=== PATIENT | female | born 1975 | race Caucasian/White ===

== ENCOUNTER 2017-03-04 06:08 | Observation (INO) ==
[2017-03-04] MEDS ORDERED: SODIUM CHLORIDE 1,000 ML IV STA ×2 (06:30)
[2017-03-04] MEDS ORDERED: PHENERGAN 25 MG/ML VIAL 25 MG in SODIUM CHLORIDE 50 ML IV STA ×2 (06:31→09:10)
--- NOTE | 2017-03-04 06:37 | ED.PDOC ---
General Stated Complaint: im vomting and having diarrhea Time Seen by Physician: 06:35 Mode of Arrival: Walk-In Information Source: Patient Exam Limitations: No limitations Nursing and Triage Documentation Reviewed and Agree: Yes <SARAHESTERCHELI - Last Filed: 03/04/17 06:37> Stated Complaint: Woke up with nausea/vomiting. Diarrhea x 2. Chills. Perspiring. Appetite down. Unable to keep liquids down. [ End ]SINCE 299 97.4 76 20 98% 174/81 Time Seen by Physician: 07:18 <TEAGAN MARTINEZ JR - Last Filed: 03/04/17 11:23> ED Provider: Dr. TEAGAN MARTINEZ JR Chief Complaint: Nausea/Vomiting Primary Care Provider: GLORIA PARIKH GI Complaint Exam - Vomiting/Diarrhea Complaint/Exam Onset/Duration: several hours Symptoms Are: Still present Episodes of Vomiting over last 24 Hours: 8 Episodes of Diarrhea Over Last 24 Hours: 6 Initial Severity: Mild Current Severity: Moderate Character of Vomiting: Reports: Non-bilious Character of Diarrhea: Reports: Watery Aggravating: Reports: Food Alleviating: Reports: None Associated Signs and Symptoms: Reports: Cramping Recent Positive Test: No Use of Oral Contraceptives: No Use of Depoprovera: No Compliant With Contraceptive Use: No Non-GI Risk Factors: Reports: None Surgical Obstruction Risk Factors: Reports: Colicky abdominal pain Abdominal Findings: Present: None Kussmaul Respirations Present: No Differential Diagnoses: Dehydration, Viral Gastroenteritis, Bacterial Gastroenteritis <SARAHESTERCHELI Filed: 03/04/17 06:37> Review of Systems - Review Of Systems Constitutional: Reports: No symptoms Eyes: Reports: No symptoms Ears, Nose, Mouth, Throat: Reports: No symptoms Respiratory: Reports: No symptoms Cardiac: Reports: No symptoms GI: Reports: Abdominal pain, Diarrhea, Nausea, Vomiting : Reports: No symptoms Musculoskeletal: Reports: No symptoms Skin: Reports: No symptoms Neurological: Reports: No symptoms Endocrine: Reports: No symptoms Hematologic/Lymphatic: Reports: No symptoms All Other Systems: Reviewed and Negative <SARAH-ERCHELI Last Filed: 03/04/17 06:37> Past Medical History - Past Medical History Endocrine: Reports: Unknown Cardiovascular: Reports: Hypertension Hematological: Reports: Unknown Gastrointestinal: Reports: Unknown Genitourinary: Reports: Unknown Neuro/Psych: Reports: Unknown Musculoskeletal: Reports: Unknown Cancer: Reports: Unknown Last Menstrual Period: now - Surgical History General Surgical History: Reports: Unknown - Family History Family History: Reports: Unknown - Social History Smoking Status: Current every day smoker Hx Substance Use: No Alcohol Screening: Occasionally Lives: With family - Immunizations Tetanus Shot up to Date: Yes <SARAHESTERCHELI - Last Filed: 03/04/17 06:37> - Past Medical History Cardiovascular: Reports: Hypertension Respiratory: Reports: Unknown Neuro/Psych: Reports: Anxiety, Depression Other Pertinent Past Medical History: 2009 similar episode per patietn <TEAGAN MARTINEZ JR - Last Filed: 03/04/17 11:23> Physical Exam - Physical Exam Appearance: Well-appearing, No pain distress, Well-nourished Pain Distress: Mild Eyes: GIANA, EOMI, Conjunctiva clear ENT: Ears normal, Nose normal, Oropharynx normal Neck: Supple Respiratory: Airway patent, Breath sounds clear, Breath sounds equal, Respirations nonlabored Cardiovascular: RRR, Pulses normal, No rub, No murmur GI/: Soft, Nontender, No masses, Bowel sounds normal, No Organomegaly Musculoskeletal: Normal strength, ROM intact, No edema, No calf tenderness Skin: Warm, Dry, Normal color Neurological: Sensation intact, Motor intact, Reflexes intact, Cranial nerves intact, Alert, Oriented Psychiatric: Affect appropriate <SARAHESTERCHELI - Last Filed: 03/04/17 06:37> Interpretation - Radiology Interpretation Radiology Interpretation By: Radiologist Radiology Results: Positive Exam Interpreted: CT Scan (gastroenteritis) Radiology Interpretation By: Radiologist Radiology Results: Negative Exam Interpreted: CXR <TEAGAN MARTINEZ JR - Last Filed: 03/04/17 11:23> Physician Notification - Case Discussed Physician Notified: dr martinez Time of Notification: 07:00 <JEFFRYCHELI - Last Filed: 03/04/17 06:37> Critical Care Note - Critical Care Note Total Time (mins): 5 <TEAGAN MARTINEZ JR - Last Filed: 03/04/17 11:23> Course - Course Hematology/Chemistry: 03/04/17 06:35 03/04/17 06:35 <TEAGAN MARTINEZ JR - Last Filed: 03/04/17 11:23> - Course Orders, Labs, Meds: Lab Review 0403/04/17 03/04/17 06:30 06:35 09:56 WBC 15.63 H RBC 4.91 Hgb 14.0 Hct 41.7 MCV 84.9 MCH 28.5 MCHC 33.6 RDW Coeff of Jesus 17.6 H Plt Count 244 Immature Gran % (Auto) 0.3 Neut % (Auto) 84.5 Lymph % (Auto) 8.4 L [place] % (Auto) 5.5 Eos % (Auto) 1.0 Baso % (Auto) 0.3 Immature Gran # (Auto) 0.1 Neut # 13.2 H Lymph # 1.3 [place] # 0.9 Eos # 0.2 Baso # 0.0 Sodium 139 Potassium 3.8 Chloride 107 Carbon Dioxide 21 Anion Gap 14.8 BUN 11 Creatinine 0.93 Estimated GFR (MDRD) 66.00 BUN/Creatinine Ratio 11.82 Glucose 164 H Calcium 9.1 Total Bilirubin 0.29 AST 11 L ALT 8 L Alkaline Phosphatase 61 Total Protein 7.4 Albumin 4.1 Globulin 3.3 Albumin/Globulin Ratio 1.24 Amylase 48 Lipase 16 Serum , Qual Negative Urine Color Yellow Urine Clarity Slightly Urine pH 7.0 Ur Specific [place] 1.020 Urine Protein Negative Urine Glucose (UA) Negative Urine Ketones 1+ Urine Blood 3+ Urine Nitrite Negative Urine Bilirubin Negative Urine Urobilinogen 0.2 Ur Leukocyte Esterase Negative Urine Microscopic RBC 10-20 Urine Microscopic WBC 0-2 Ur Squamous Epith Cells 10-20 Urine Bacteria 1+ Influenza A (Rapid) Negative Influenza B (Rapid) Negative Orders Category Date Time Status PLACE PATIENT OBSERVATION .[facility] (NON-MONITORED ADMISSION 03/04/17 11: 06 Ordered BED) ACTIVITY .Early Mobilization for VTE Prevention CARE 03/04/17 11:06 Ordered C-DIFF MONITORING (NURSING) BID CARE 03/04/17 06:30 Active GIVE HS SNACK 2100 CARE 03/04/17 11:11 Ordered INTAKE & OUTPUT Q8HR CARE 03/04/17 11:07 Ordered VITAL SIGNS Q4HR CARE 03/04/17 11:06 Ordered CLEAR LIQUID DIET DIETARY 03/04/17 Lunch Ordered HS SNACK DIETARY 03/04/17 Dinner Ordered IV [ED IV/MEDIPORT/POWERPORT] .ONCE EMERGENCY 03/04/17 06:30 Active Orthostatic [ED ORTHOSTATIC VITAL SIGNS] .ONCE EMERGENCY 03/04/17 07:06 Active AMYLASE Stat LAB 03/04/17 06:35 Completed CBC W/ AUTO DIFF DAILY@0600 LAB 03/05/17 06:00 Ordered CBC W/ AUTO DIFF DAILY@0600 LAB 03/06/17 06:00 Ordered CBC W/ AUTO DIFF DAILY@0600 LAB 03/07/17 06:00 Ordered CBC W/ AUTO DIFF DAILY@0600 LAB 03/08/17 06:00 Ordered CBC W/ AUTO DIFF DAILY@0600 LAB 03/09/17 06:00 Ordered CBC W/ AUTO DIFF DAILY@0600 LAB 03/10/17 06:00 Ordered CBC W/ AUTO DIFF DAILY@0600 LAB 03/11/17 06:00 Ordered CBC W/ AUTO DIFF DAILY@0600 LAB 03/12/17 06:00 Ordered CBC W/ AUTO DIFF DAILY@0600 LAB 03/13/17 06:00 Ordered CBC W/ AUTO DIFF DAILY@0600 LAB 03/14/17 06:00 Ordered CBC W/ AUTO DIFF DAILY@0600 LAB 03/15/17 06:00 Ordered CBC W/ AUTO DIFF DAILY@0600 LAB 03/16/17 06:00 Ordered CBC W/ AUTO DIFF DAILY@0600 LAB 03/17/17 06:00 Ordered CBC W/ AUTO DIFF DAILY@0600 LAB 03/18/17 06:00 Ordered CBC W/ AUTO DIFF DAILY@0600 LAB 03/19/17 06:00 Ordered CBC W/ AUTO DIFF DAILY@0600 LAB 03/20/17 06:00 Ordered CBC W/ AUTO DIFF DAILY@0600 LAB 03/21/17 06:00 Ordered CBC W/ AUTO DIFF DAILY@0600 LAB 03/22/17 06:00 Ordered CBC W/ AUTO DIFF DAILY@0600 LAB 03/23/17 06:00 Ordered CBC W/ AUTO DIFF DAILY@0600 LAB 03/24/17 06:00 Ordered CBC W/ AUTO DIFF Stat LAB 03/04/17 06:35 Completed COMPREHENSIVE METABOLIC PANEL DAILY@0600 LAB 03/05/17 06:00 Ordered COMPREHENSIVE METABOLIC PANEL DAILY@0600 LAB 03/06/17 06:00 Ordered COMPREHENSIVE METABOLIC PANEL DAILY@0600 LAB 03/07/17 06:00 Ordered COMPREHENSIVE METABOLIC PANEL DAILY@0600 LAB 03/08/17 06:00 Ordered COMPREHENSIVE METABOLIC PANEL DAILY@0600 LAB 03/09/17 06:00 Ordered COMPREHENSIVE METABOLIC PANEL DAILY@0600 LAB 03/10/17 06:00 Ordered COMPREHENSIVE METABOLIC PANEL DAILY@0600 LAB 03/11/17 06:00 Ordered COMPREHENSIVE METABOLIC PANEL DAILY@0600 LAB 03/12/17 06:00 Ordered COMPREHENSIVE METABOLIC PANEL DAILY@0600 LAB 03/13/17 06:00 Ordered COMPREHENSIVE METABOLIC PANEL DAILY@0600 LAB 03/14/17 06:00 Ordered COMPREHENSIVE METABOLIC PANEL DAILY@0600 LAB 03/15/17 06:00 Ordered COMPREHENSIVE METABOLIC PANEL DAILY@0600 LAB 03/16/17 06:00 Ordered COMPREHENSIVE METABOLIC PANEL DAILY@0600 LAB 03/17/17 06:00 Ordered COMPREHENSIVE METABOLIC PANEL DAILY@0600 LAB 03/18/17 06:00 Ordered COMPREHENSIVE METABOLIC PANEL DAILY@0600 LAB 03/19/17 06:00 Ordered COMPREHENSIVE METABOLIC PANEL DAILY@0600 LAB 03/20/17 06:00 Ordered COMPREHENSIVE METABOLIC PANEL DAILY@0600 LAB 03/21/17 06:00 Ordered COMPREHENSIVE METABOLIC PANEL DAILY@0600 LAB 03/22/17 06:00 Ordered COMPREHENSIVE METABOLIC PANEL DAILY@0600 LAB 03/23/17 06:00 Ordered COMPREHENSIVE METABOLIC PANEL DAILY@0600 LAB 03/24/17 06:00 Ordered COMPREHENSIVE METABOLIC PANEL Stat LAB 03/04/17 06:35 Completed LIPASE Stat LAB 03/04/17 06:35 Completed MOLECULAR GROUP A STREP Stat LAB 03/04/17 06:30 Results RAPID FLU A/B Stat LAB 03/04/17 06:30 Completed SERUM Stat LAB 03/04/17 06:35 Completed STOOL CULTURE Stat LAB 03/04/17 Ordered STREP SCREEN Stat LAB 03/04/17 06:30 Results UA [URINALYSIS C & S IF INDICATED] Routine LAB 03/05/17 06:00 Uncollected URINALYSIS C & S IF INDICATED Stat LAB 03/04/17 09:56 Completed URINE CULTURE Routine LAB 03/04/17 10:15 Received cdiff [C. DIFFICILE] Routine LAB 03/04/17 06:30 Uncollected 0.9 % Sodium Chloride [Saline Flush] MEDS 03/04/17 06:30 Active 1 syr IVF PRN PRN Diphenoxylate HCl/Atropine [Lomotil] MEDS 03/04/17 13:00 Ordered 5 ml PO QID Enalaprilat Dihydrate [Vasotec IV] MEDS 03/04/17 09:11 Discontinued 1.25 mg IVP ONCE STA Prochlorperazine Edisylate [Compazine] MEDS 03/04/17 11:14 Ordered 10 mg IVP Q4H PRN Promethazine HCl [Phenergan 25 mg/ml Vial] MEDS 03/04/17 06:46 Discontinued 25 mg .ROUTE .STK-MED ONE Promethazine HCl [Phenergan 25 mg/ml Vial] MEDS 03/04/17 09:13 Discontinued 25 mg .ROUTE .STK-MED ONE Promethazine HCl [Phenergan 25 mg/ml Vial] 25 mg MEDS 03/04/17 06:31 Discontinued 0.9 % Sodium Chloride [Sodium Chloride] 50 ml IV ONCE Promethazine HCl [Phenergan 25 mg/ml Vial] 25 mg MEDS 03/04/17 09:10 Discontinued 0.9 % Sodium Chloride [Sodium Chloride] 50 ml IV ONCE Sodium Chloride 0.9% [Sodium Chloride] 1,000 ml MEDS 03/04/17 11:30 Ordered IV 75 mls/hr Sodium Chloride 0.9% [Sodium Chloride] 1,000 ml MEDS 03/04/17 06:30 Discontinued IV BOLUS Sodium Chloride 0.9% [Sodium Chloride] 1,000 ml MEDS 03/04/17 06:30 Discontinued IV BOLUS RESUSCITATION STATUS Routine OTHERS 03/04/17 11:[address] ABDOMEN/PELVIS WO CONTRAST Stat RADS 03/04/17 06:31 Completed CXR [CHEST, 2 VIEWS PA & LAT] Stat RADS 03/04/17 10:53 Ordered Medications Generic Name Dose Route Start Last Admin Trade Name Freq PRN Reason Stop Dose Admin Diphenoxylate HCl/Atropine 5 ml 03/04/17 13:00 Lomotil PO QID HARLAN Sodium Chloride 1,000 mls @ 75 mls/hr 03/04/17 11:30 Sodium Chloride IV .[id number] HARLAN Prochlorperazine Edisylate 10 mg 03/04/17 11:14 Compazine IVP Q4H PRN Nausea / Vomiting Sodium Chloride 1 syr 03/04/17 06:30 03/04/17 06:56 Saline Flush IVF 1 syr PRN PRN Administration To flush IV Discontinued Medications Generic Name Dose Route Start Last Admin Trade Name Freq PRN Reason Stop Dose Admin Enalaprilat 1.25 mg 03/04/17 09:11 03/04/17 10:08 Vasotec Iv IVP 03/04/17 09:12 1.25 mg ONCE STA Administration Promethazine HCl 25 mg/ Sodium 51 mls @ 75 mls/hr 03/04/17 06:31 03/04/17 06: 56 Chloride IV 03/04/17 07:11 75 mls/hr ONCE STA Administration Sodium Chloride 1,000 mls @ 1,000 mls/hr 03/04/17 06:30 03/04/17 06:56 Sodium Chloride IV 03/04/17 07:29 1,000 mls/hr BOLUS STA Administration Sodium Chloride 1,000 mls @ 1,000 mls/hr 03/04/17 06:30 03/04/17 08:04 Sodium Chloride IV 03/04/17 07:29 Not Given BOLUS STA Promethazine HCl 25 mg/ Sodium 51 mls @ 75 mls/hr 03/04/17 09:10 03/04/17 09: 19 Chloride IV 03/04/17 09:50 75 mls/hr ONCE STA Administration Vital Signs: Temp Pulse Resp BP Pulse Ox 03/04/17 08:50 92 H 169/87 H 03/04/17 07:40 98.3 F 03/04/17 06:14 97.4 F L 76 20 174/81 H 98 Departure <CHELI TERAN - Last Filed: 03/04/17 06:37> - Departure Time of Disposition: 08:25 Pt referred to PMD for follow-up: Yes <TEAGAN MARTINEZ JR - Last Filed: 03/04/17 11:23> - Departure Disposition: HOME SELF-CARE Discharge Problem: Gastroenteritis Instructions: Gastroenteritis (ED) Condition: Good Additional Instructions: phenergan as needed follow up with PMD discuss CT findings return if unable to keep liquids down if not voiding more than 3 times a day if fever over 101.0 Please follow-up with Dr. Parikh in 1-5 days. Prescriptions: Promethazine HCl [Phenergan Tab] 25 mg PO QID PRN #12 tablet PRN Reason: Nausea / Vomiting Allergies/Adverse Reactions: Allergies ondansetron [From Zofran (as hydrochloride)] Adverse Reaction (Verified 06:30) Vomiting sulfamethoxazole [From Bactrim] Adverse Reaction (Verified 03/04/17 06:30) trimethoprim [From Bactrim] Adverse Reaction (Verified 03/04/17 06:30) Home Medications: Ambulatory Orders Citalopram Hydrobromide [Celexa] 20 mg PO DAILY 03/04/17 Ferrous Sulfate [Iron] 325 mg PO DAILY 03/04/17 Promethazine HCl [Phenergan Tab] 25 mg PO QID PRN #12 tablet 03/04/17 Quinapril HCl 40 mg PO DAILY 03/04/17
[2017-03-04 06:43] LABS: BASOPHILS % (AUTO) 0.3 % (0.0-3.0); EOSINOPHILS # (AUTO) 0.2 K/ul (0.0-0.7); HEMATOCRIT 41.7 % (37.0-47.0); IMMATURE GRANULOCYTE % (AUTO) 0.3 % (0.0-5.0); LYMPHOCYTES # (AUTO) 1.3 K/uL (0.60-3.4); LYMPHOCYTES % (AUTO) 8.4 (10.0-50.0); MEAN CORPUSCULAR HEMOGLOBIN 28.5 pg (27.0-31.0); MEAN CORPUSCULAR HGB CONC 33.6 (31.8-35.4); MEAN CORPUSCULAR VOLUME 84.9 fl (81.0-99.0); MONOCYTES # (AUTO) 0.9 K/uL (0.4-2.0); MONOCYTES % (AUTO) 5.5 (0-10); NEUTROPHILS # (AUTO) 13.2 K/ul (2.0-6.9); NEUTROPHILS % (AUTO) 84.5; PLATELET COUNT 244 10^3/uL (140-440); RED BLOOD COUNT 4.91 10^6/ul (4.20-5.40); WHITE BLOOD COUNT 15.63 K/ul (4.6-10.2)
[2017-03-04] MEDS ORDERED: PHENERGAN 25 MG/ML VIAL ONE ×2 (06:46→09:13)
[2017-03-04 06:57] LABS: FLU INTERNAL QC INTERNAL QC VALID; RAPID FLU A NEGATIVE (NEGATIVE); RAPID FLU B NEGATIVE (NEGATIVE)
[2017-03-04 06:57] LABS: SERUM PREGNANCY INTERNAL QC INTERNAL QC VALID
[2017-03-04 07:02] LABS: ALBUMIN 4.1 g/dL (3.4-5.0); ALBUMIN/GLOBULIN RATIO 1.24; ANION GAP 14.8; BILIRUBIN,TOTAL 0.29 mg/dL (0.00-1.20); BUN/CREATININE RATIO 11.82; CALCIUM 9.1 mg/dL (8.2-10.2); CREATININE 0.93 mg/dL (0.60-1.30); POTASSIUM 3.8 mmol/L (3.5-5.10); TOTAL PROTEIN 7.4 g/dL (6.4-8.2)
--- NOTE | 2017-03-04 08:31 | CT ---
EXAM: CT abdomen pelvis without contrast HISTORY: Vomiting COMPARISON: 12/21/2009 TECHNIQUE: CT abdomen pelvis performed without intravenous contrast. Coronal and sagittal reformat fabricio images obtained. FINDINGS: Lung bases clear. No free air. No acute abnormalities of the bones. Evaluation limited without contrast. Heart normal in size. Sub centimeter hypodensity in the liver, too small to adam acterize. Gallbladder unremarkable. Pancreas unremarkable. Spleen unremarkable. Adrenals unremar kable. Kidneys unremarkable. Aorta normal in caliber. Mild atherosclerosis No lymphadenopathy or ascites. Bladder unremarkable. Sub centimeter calcification in the uterus likely small fibroid. Sm all hiatal hernia. No dilated loops small bowel. There are fluid-filled loops small bowel with mil d areas of wall thickening and prominence vasa recta, findings suggesting enteritis. Appendix appe ars normal. There is fluid in the colon. Possible mild wall thickening of the descending colon to t he rectum. Increased submucosal fat deposition in portions of the colon. IMPRESSION: 1. Findings of enteritis. Possible mild associated colitis. Fluid in the colon likely relates to d iarrhea. 2. Increased submucosal fat deposition in portions of the colon, suggesting sequela of remote infec tion or inflammation, such as inflammatory bowel disease. 3. Small hiatal hernia. 4. Small fibroid.
[2017-03-04] MEDS ORDERED: VASOTEC IV IVP STA ×2 (09:11→22:18)
[2017-03-04 10:08] LABS: BILIRUBIN,URINE Negative (NEGATIVE); KETONES,URINE 1+ (NEGATIVE); LEUKOCYTE ESTERASE ,URINE Negative (NEGATIVE); NITRITE,URINE Negative (NEGATIVE); PROTEIN,URINE Negative (NEGATIVE); URINE, BLOOD 3+ (NEGATIVE)
[2017-03-04 10:13] LABS: ADD URINE MICROSCOPIC YES
[2017-03-04 10:14] LABS: BACTERIA,URINE 1+ (NOT PRESENT)
--- NOTE | 2017-03-04 11:14 | DI ---
EXAM: PA and lateral views of the chest HISTORY: Cough COMPARISON: Chest x-ray 12/21/2009 FINDINGS: The cardiomediastinal silhouette is normal. There is no pneumothorax or pleural effusion . There is no consolidation, nodule or mass. The osseous structures are unchanged with mild degene rative disease. IMPRESSION: No acute cardiopulmonary process
[2017-03-04] MEDS: SODIUM CHLORIDE 1,000 ML IV SCH (12:45)
[2017-03-04 12:50] VITALS: BMI 23.1
[2017-03-04] MEDS ORDERED: LOMOTIL PO SCH (13:00)
[2017-03-04] MEDS: LOMOTIL PO SCH ×3 (14:09→20:47)
[2017-03-04] MEDS: COMPAZINE IVP PRN ×2 (15:43→20:07)
[2017-03-05] MEDS: SODIUM CHLORIDE 1,000 ML IV SCH (01:35)
[2017-03-05 04:50] LABS: BASOPHILS % (AUTO) 0.3 % (0.0-3.0); HEMATOCRIT 36.1 % (37.0-47.0); HEMOGLOBIN 11.9 g/dl (12.0-16.0); IMMATURE GRANULOCYTE % (AUTO) 0.5 % (0.0-5.0); LYMPHOCYTES # (AUTO) 1.6 K/uL (0.60-3.4); LYMPHOCYTES % (AUTO) 14.8 (10.0-50.0); MEAN CORPUSCULAR HEMOGLOBIN 27.7 pg (27.0-31.0); MEAN CORPUSCULAR VOLUME 84.1 fl (81.0-99.0); MONOCYTES # (AUTO) 0.6 K/uL (0.4-2.0); MONOCYTES % (AUTO) 5.5 (0-10); NEUTROPHILS # (AUTO) 8.4 K/ul (2.0-6.9); NEUTROPHILS % (AUTO) 78.9; PLATELET COUNT 235 10^3/uL (140-440); RED BLOOD COUNT 4.29 10^6/ul (4.20-5.40); WHITE BLOOD COUNT 10.57 K/ul (4.6-10.2)
[2017-03-05 05:12] LABS: ALBUMIN 3.5 g/dL (3.4-5.0); ALBUMIN/GLOBULIN RATIO 1.17; ANION GAP 11.3; BILIRUBIN,TOTAL 0.49 mg/dL (0.00-1.20); BUN/CREATININE RATIO 8.75; CREATININE 0.8 mg/dL (0.60-1.30); POTASSIUM 3.3 mmol/L (3.5-5.10); TOTAL PROTEIN 6.5 g/dL (6.4-8.2)
[2017-03-05 05:50] LABS: BILIRUBIN,URINE 1+ (NEGATIVE); KETONES,URINE 3+ (NEGATIVE); LEUKOCYTE ESTERASE ,URINE Negative (NEGATIVE); NITRITE,URINE Negative (NEGATIVE); PROTEIN,URINE Trace (NEGATIVE); URINE, BLOOD 1+ (NEGATIVE)
[2017-03-05 05:55] LABS: ADD URINE MICROSCOPIC YES
[2017-03-05 05:56] LABS: BACTERIA,URINE TRACE (NOT PRESENT)
[2017-03-05] MEDS ORDERED: MICRO-K CAP PO STA (08:32)
[2017-03-05] MEDS ORDERED: CELEXA PO SCH (09:00)
[2017-03-05] MEDS ORDERED: FERROUS SULFATE PO SCH (09:00)
[2017-03-05] MEDS ORDERED: POTASSIUM CHLORIDE 40 MEQ VIAL-ADDITIVE ONLY 30 MEQ in SODIUM CHLORIDE 1,000 ML IV SCH (09:00)
[2017-03-05] MEDS ORDERED: POTASSIUM CHLORIDE 10 MEQ VIAL-ADDITIVE ONLY 10 MEQ in SODIUM CHLORIDE 0.9%-KCL 20 MEQ ... IV SCH (09:00)
[2017-03-05] MEDS ORDERED: NON-FORMULARY MEDICATION (Ferrous Sulfate [Iron] 325 MG) PO SCH ×22 (09:00)
[2017-03-05] MEDS ORDERED: ACCUPRIL PO SCH (09:00)
[2017-03-05] MEDS: LOMOTIL PO SCH ×2 (09:10→14:03)
--- NOTE | 2017-03-05 09:54 | PCM.PROG ---
Attending Provider: ATTENDING PROVIDER: Dr. GLORIA HOSKINS DATE OF SERVICE: 03/05/17 SUBJECTIVE: This 41 year old WHITE/ F was hospitalized 03/04/17. The patient is hospitalized with acute gastroenteritis. Her condition has improved remarkably. She vomited 2 times last night after 5 a.m. She is feeling better without any nausea or vomiting. Appetite has improved. The patient wants to go home. Her amylase and lipase are negative. WBC count is back to normal with borderline hypokalemia noted. The patient's mother is in the room and was yesterday as well. REVIEW OF SYSTEMS: CONSTITUTIONAL: No night sweats. No fatigue, malaise, lethargy. No fever or chills. HEENT: Eyes: No visual changes. No eye pain. No eye discharge. ENT: No runny nose. No epistaxis. No sinus pain. No odynophagia. No congestion. RESPIRATORY: No cough, no congestion. No hemoptysis. CARDIOVASCULAR: No angina symptoms. No CHF symptoms. No atypical chest pain for CAD. No palpitations. No shortness of breath. GASTROINTESTINAL: No abdominal pain. No nausea or vomiting. No diarrhea or constipation. No hematemesis. No hematochezia. GENITOURINARY: No urgency. No frequency. No dysuria. No hematuria. No obstructive symptoms. No discharge. No pain. No significant abnormal bleeding. MUSCULOSKELETAL: No musculoskeletal pain; no joint swelling. NEUROLOGICAL: Awake, alert, oriented to time, place and person. No headache. No neck pain. No syncope. No seizures. No dizziness. PSYCHIATRIC: Not anxious. No depression. No suicidal thoughts. No homicidal thoughts. SKIN: No rash. No lesions. No wounds. ENDOCRINE: No unexplained weight loss. No weight gain. HEMATOLOGIC/LYMPHATIC: No anemia. No purpura. No petechiae. No prolonged or excessive bleeding. No palpable lymph nodes. PHYSICAL EXAMINATION: GENERAL: The patient is awake, alert and oriented, lying/sitting in bed in no distress. VITAL SIGNS: Temperature 98.0 F, Pulse 84, Respiratory Rate 18, BP 136/74, Pulse Ox 98% HEENT: Head normocephalic, atraumatic. Eyes: Extraocular muscles are intact. Pupils are equal, round and reactive to light and accommodation. Ears: No lesions. Nose appeared normal. Throat: No exudate or erythema. NECK: Supple. No JVD, no carotid bruit. No lymphadenopathy or thyromegaly. LUNGS: Decreased breath sounds. Clear to auscultation. Percussion note normal. Chest symmetrical. HEART: S1, S2, no S3. No murmurs. No cyanosis or clubbing. No ascites. Pulses: Dorsalis pedis and posterior tibial pulses +1 to +2 both sides. ABDOMEN: Soft. Non-tender. Bowel sounds active. No CVA tenderness. No mass felt. EXTREMITIES: No edema. Full range of motion of all extremities, equal. NEUROLOGIC: No focal deficit. Cranial nerves II through XII are grossly intact. No headache, no double vision or headache. SKIN: Not dry. Intact. Turgor-normal. LYMPHATIC: No palpable lymph nodes/no lymphedema. MUSCULOSKELETAL: Normal joints with no swelling. Muscle tone is normal. LAB REVIEW: 03/05/17 04:30 03/05/17 04:30 03/05/17 05:30: Urine Color Yellow, Urine Clarity Clear, Urine pH 6.0, Ur Specific [place] >=1.030, Urine Protein Trace, Urine Glucose (UA) Negative, Urine Ketones 3+, Urine Blood 1+, Urine Nitrite Negative, Urine Bilirubin 1+, Urine Urobilinogen 0.2, Ur Leukocyte Esterase Negative, Urine Microscopic RBC 0- 2, Urine Microscopic WBC 0-2, Ur Squamous Epith Cells 0-2, Urine Bacteria Trace 03/05/17 04:30: WBC 10.57 H D, RBC 4.29, Hgb 11.9 L, Hct 36.1 L, MCV 84.1, MCH 27.7, MCHC 33.0, RDW Coeff of Jesus 18.1 H, Plt Count 235, Immature Gran % (Auto) 0.5, Neut % (Auto) 78.9, Lymph % (Auto) 14.8, [place] % (Auto) 5.5, Eos % (Auto) 0.0, Baso % (Auto) 0.3, Immature Gran # (Auto) 0.1, Neut # 8.4 H, Lymph # 1.6, [place] # 0.6, Eos # 0.0, Baso # 0.0, Sodium 141, Potassium 3.3 L, Chloride 111 H, Carbon Dioxide 22, Anion Gap 11.3, BUN 7, Creatinine 0.80, Estimated GFR (MDRD) 79.00, BUN/Creatinine Ratio 8.75, Glucose 95 D, Calcium 9.0, Total Bilirubin 0.49, AST 10 L, ALT 7 L, Alkaline Phosphatase 52, Total Protein 6.5, Albumin 3.5 , Globulin 3.0, Albumin/Globulin Ratio 1.17 ASSESSMENT: 1. Acute gastroenteritis seems to be resolving. PLAN: 1. Continue IV fluids 2. Soft diet; avoid milk products; will see how she tolerates with possible discharge home today 3. Restart all medications 4. Micro-K 10 mEq p.o. one dose 5. Potassium IV 75 mL/hr Plan and coordination of the patient's care discussed in the presence of Regulatory Attorney and nurse. CONDITION: Stable SCRIBED BY: JOSE MENDOZA Tracer Clerk scribed while in presence of service performed by Dr. GLORIA HOSKINS on 03/05/17 ([id number])
[2017-03-05 10:25] VITALS: BP 142/76; TEMP 98.2
[2017-03-05] MEDS ORDERED: MICRO-K CAP PO ONE (12:00)
--- NOTE | 2017-03-06 13:44 | SSS ---
DATE OF SERVICE: 03/04/17 ADMITTED/03/05/17 DISCHARGED REASON FOR ADMISSION: Observation for gastroenteritis. HISTORY OF PRESENT ILLNESS: This is a 41-year-old female patient, who was seen in the emergency room by Dr. Ferrari and admitted to observation. The patient awakened with nausea and vomiting , chills and diaphoresis. She had two episodes of emesis, unable to keep anything down, unable to take medications including antihypertensives. The patient on admission was kept NPO with IV fluids. PAST MEDICAL HISTORY: 1. Hypertension 2. Anemia 3. Anxiety/depression PERSONAL/FAMILY/SOCIAL HISTORY: The patient is single, resides at home with boyfriend. Independent with ADLs. Does not require DME, home health or homemaking services. Current smoker. No recreational drugs. REVIEW OF SYSTEMS: CONSTITUTIONAL: No fever. Positive for chills, diaphoresis, nausea and vomiting. No night sweats. No fatigue, malaise, lethargy. HEENT: Eyes: No visual changes. No eye pain. No eye discharge. ENT: No runny nose. No epistaxis. No sinus pain. No sore throat. No odynophagia. No ear pain. No congestion. RESPIRATORY: No cough, no congestion. No wheeze. No hemoptysis. CARDIOVASCULAR: No angina symptoms. No CHF symptoms. No atypical chest pain for CAD. No palpitations. No shortness of breath. GASTROINTESTINAL: Abdominal pain. No nausea or vomiting. No diarrhea or constipation. No hematemesis. No hematochezia. GENITOURINARY: No urgency. No frequency. No dysuria. No hematuria. No obstructive symptoms. No discharge. No pain. No significant abnormal bleeding. MUSCULOSKELETAL: No musculoskeletal pain. No joint swelling. NEUROLOGICAL: Awake, alert, oriented to time, place and person. No headache. No neck pain. No syncope. No seizures. No dizziness. PSYCHIATRIC: Not anxious. No depression. No suicidal thoughts. No homicidal thoughts. SKIN: No rash. No lesions. No wounds. ENDOCRINE: No unexplained weight loss. No weight gain. HEMATOLOGIC/LYMPHATIC: No anemia. No purpura. No petechiae. No prolonged or excessive bleeding. No palpable lymph nodes. PHYSICAL EXAMINATION: GENERAL: 41-year-old female. Height 5'5", weight 138 pounds. VITAL SIGNS: BP 172/98, pulse 88, respiratory rate 16, temperature 97.8. HEENT: Head normocephalic, atraumatic. Eyes: Extraocular muscles are intact. Pupils are equal, round and reactive to light and accommodation. Ears: No lesions. Nose appeared normal. Throat: No exudate or erythema. NECK: Supple. No JVP, no carotid bruit. No lymphadenopathy or thyromegaly. LUNGS: Clear to auscultation. Percussion note normal. Chest symmetrical. HEART: S1, S2, no S3. No murmurs. No cyanosis or clubbing. No ascites. Pulses: Dorsalis pedis and posterior tibial pulses +1 to +2 both sides. ABDOMEN: Soft. Nontender. Bowel sounds active. No CVA tenderness. No mass felt. EXTREMITIES: No edema. Full range of motion of all extremities, equal. NEUROLOGIC: Awake, alert, oriented times three. No focal deficit. Cranial nerves II through XII are grossly intact. No headache, no double vision or headache. SKIN: Not dry. Intact. Turgor - normal. LYMPHATIC: No palpable lymph nodes/no lymphedema. MUSCULOSKELETAL: Normal joints with no swelling. Muscle tone is normal. Old/present records reviewed Office records reviewed. ALLERGIES: ONDANSETRON, SULFAMETHOXAZOLE, TRIMETHOPRIM MEDICATIONS: 1. Quinapril 2. FeS04 3. Celexa 4. Phenergan (Rx from ER) LABS/EKG'S/X-RAY/ECHO/ABG: WBCs 15.63, HgB 14.0, platelets 244, HCT 41.7. Sodium 139, chloride 107, BUN 11 , glucose 164, K+ 3.8, c02 21, creatinine 0.43. Amylase 48, lipase 16. UA 1+ ketones, 3+ blood, 1+ bacteria. Influenza A & B negative, strep negative. PROGRESS NOTES: The patient is feeling much better today, wants to try food. The patient had 3 episodes of emesis yesterday after admission, none since. No recorded stools. Case Discussed with Attending Physician: Case Discussed with Family: Yes DIAGNOSES: 1. ACUTE GASTROENTERITIS 2. DEHYDRATION 3. HYPERTENSION 4. DEPRESSION 5. ANEMIA 6. SMOKING RECOMMENDATIONS/PLAN: 1. Home today 2. Return to office in 5 to 7 days 3. Call for appointment EDUCATION CARRIED OUT ABOUT: Gastroenteritis, hypertension, medications and followup TIME SPENT: More than 70 minutes. [facility]
--- NOTE | 2017-03-06 15:01 | DS ---
DATE OF SERVICE: 03/05/17 OBSERVATION FINAL DIAGNOSIS: 1. Acute gastroenteritis 2. Hypertension 3. Depression DISCHARGE INSTRUCTIONS: Discharge home. Return to see Dr. Parikh in 5-7 days. Resume home medications. MEDICATIONS AT DISCHARGE: Celexa Ferrous sulfate Quinapril Promethazine NEW PRESCRIPTIONS: No new medications DIET INSTRUCTIONS: Soft No Dairy Products May advance as tolerated ACTIVITY: Get plenty of rest at home. Gradually increase your activity level according to toleration. SMOKING: Current smoker DISEASE SPECIFIC EDUCATION: Medications Followup Smoking cessation Diet LABS: Hgb 11.9, hct 36, WBC 10,000 normal differential, creatinine 0.8, BUN 7, glucose 95, potassium 3.3 potassium was recorded in the morning after that the patient got nearly 30meq to 40meq potassium through IV and PO. HOSPITAL COURSE: The patient is a 41 year old white female hospitalized with severe acute gastroenteritis. The patient was treated with IV fluids and symptomatic treatment with Lomotil and Zofran. The patient's condition improved within 24 hours. She was up and about and in fact she went out smoking. She tolerated her lunch and breakfast of the morning of discharge very well.She was advised to avoid mild products for nearly 2-3 days. Condition at the time of discharge is stable. If patient's symptoms recur she is advised to go back to the emergency room. The patient's urine was abnormal but the culture sensitivity grew normal howie. Advise to drink a lot of fluids and rest for two days. CONDITION: Stable. TIME SPENT: More than 60 minutes. MTDD
== END 2017-03-05 14:40 | disposition home or self-care (01) ==
LOC: ED 06:08 → MEDSURG B 11:15
PROVIDERS: ADMIT Internal Medicine; ATTEND Internal Medicine
DX: K52.9 Noninfective gastroenteritis and colitis, unspecified (principal); R11.2 Nausea with vomiting, unspecified; I10 Essential (primary) hypertension; E86.0 Dehydration; D64.9 Anemia, unspecified; F32.9 Major depressive disorder, single episode, unspecified; F17.200 Nicotine dependence, unspecified, uncomplicated; Z79.899 Other long term (current) drug therapy
CPT/HCPCS: 36415; 80053; 81001; 82150; 83690; 84703; 85025; 87086; 87651; 87804; 87880; 96361; 96365; 96367; 96375; 96376; 99284

== ENCOUNTER 2018-02-03 10:16 | Outpatient (CLI) | END 2018-02-03 10:17 | disposition home or self-care (01) | LOC: LAB 10:16 | PROVIDERS: ATTEND Internal Medicine | DX: E78.5 Hyperlipidemia, unspecified (principal); I10 Essential (primary) hypertension; J44.9 Chronic obstructive pulmonary disease, unspecified; E01.0 Iodine-deficiency related diffuse (endemic) goiter | CPT/HCPCS: 36415; 80053; 80061; 83036; 84443; 85025 ==

== ENCOUNTER 2018-04-02 14:18 | Outpatient (CLI) | END 2018-04-02 14:19 | disposition home or self-care (01) | LOC: RAD 14:18 | PROVIDERS: ATTEND Internal Medicine | DX: Z12.31 Encounter for screening mammogram for malignant neoplasm of breast (principal) | CPT/HCPCS: 77067 ==

== ENCOUNTER 2018-09-28 16:10 | Outpatient (CLI) | END 2018-09-28 16:11 | disposition home or self-care (01) | LOC: LAB 16:10 | PROVIDERS: ATTEND Internal Medicine | DX: E78.5 Hyperlipidemia, unspecified (principal); I10 Essential (primary) hypertension | CPT/HCPCS: 36415; 80053; 80061; 83036; 84439; 84443; 85025 ==

== ENCOUNTER 2018-09-29 14:10 | Outpatient (CLI) ==
--- NOTE | 2018-09-29 15:01 | US ---
EXAM: Bilateral carotid artery Doppler. History: Dizziness. Technique: Multiple sonographic images through the bilateral internal carotid arteries were obtained . Color duplex Doppler was used to interrogate vascular flow. Findings: The right ICA peak systolic velocity is within normal limits measuring 90 cm/sec. The right ICA/cca PSV ratio is normal at 1.8. The right vertebral artery is patent and demonstrates antegrade flow. G ray scale images demonstrate mild plaque buildup within the right internal carotid artery. The left ICA peak systolic velocity is within normal limits measuring 90 cm/sec. The left ICA/cca PS V ratio is normal at 1.0. The left vertebral artery is patent and demonstrates antegrade flow. Veras scale images demonstrate mild plaque buildup within the left internal carotid artery. Impression: No significant hemodynamic stenosis of the bilateral internal carotid arteries
== END 2018-09-29 14:11 | disposition home or self-care (01) ==
LOC: RAD 14:10
PROVIDERS: ATTEND Internal Medicine
DX: R42 Dizziness and giddiness (principal)

== ENCOUNTER 2024-08-31 09:44 | Observation (INO) ==
--- NOTE | 2024-08-31 10:16 | ED.PDOC ---
General ED Provider: Dr. HEENA HERRERA DO Chief Complaint: Shortness of Air Time Seen by Provider: 08/31/24 10:15 Information Source: Patient Primary Care Provider: GLORIA HOSKINS MD What is Opioid Naive?: *Opioid Naive implies the patient is not already taking opioids or not chronically receiving opioids on a daily basis. *PRN dosing is not "usually" associated with tolerance. *Patients are at higher risk of over-sedation and aspiration. What is Opioid Tolerant?: *Opioid Tolerance implies less than the expected response to an opioid. *Acquired tolerance is defined by the patient taking 60mg of oral morphine daily (or equianalgesic dose of another opioid) for 1 week or more. *Often associated with chronic pain. *May take more than usual dose to achieve desired pain control. [facility] Medical History Intractable vomiting R11.10 - VOMITING, UNSPECIFIED (ICD-10) Gastroenteritis K52.9 - NONINFECTIVE GASTROENTERITIS AND COLITIS, UNSPECIFIED (ICD-10) Social History Smoking and tobacco status: Current every day smoker Tobacco: How many years used: 25 Quit status: considering quitting Alcohol intake: current Details: maybe 1 to times aonth Substance use type: does not use Household members: friend(s) Housing: house Marital status: D Lives independently: Yes Number of children: 0 Current occupational status: employed Pets and animals: Yes Current gender identity: female Seatbelt use: always Drives intoxicated or rides with intoxicated hearse driver: No Water heater temperature set < 120 degrees: Yes Working smoke detector in home: Yes Fire extinguisher in home: Yes Carbon monoxide detector in home: Yes Female Reproductive History Menstrual Hx Hysterectomy: No Hx Tubal Ligation: No Course Course 08/31/24 10:28 08/31/24 10:28 Orders, Labs, Meds: Lab Review 08/31/24 08/31/24 10:20 10:28 WBC 3.97 L RBC 3.79 L Hgb 7.2 L Hct 26.1 L MCV 68.9 L MCH 19.0 L MCHC 27.6 L RDW Coeff of Jesus 19.6 H Plt Count 326 Immature Gran % (Auto) 0.0 Neut % (Auto) 57.4 Lymph % (Auto) 21.7 [place] % (Auto) 15.1 H Eos % (Auto) 4.3 Baso % (Auto) 1.5 Neut # (Auto) 2.3 Lymph # (Auto) 0.9 [place] # (Auto) 0.6 Eos # (Auto) 0.2 Baso # (Auto) 0.1 Immature Gran # (Auto) 0.0 Hypochromasia 3+ Anisocytosis 2+ Microcytosis 2+ Sodium 138.5 Potassium 3.20 L Chloride 101.9 Carbon Dioxide 29.9 Anion Gap 9.90 BUN 5.4 L Creatinine 0.84 Estimated GFR (MDRD) 72.00 BUN/Creatinine Ratio 6.42 Glucose 125.5 H Calcium 9.01 Total Bilirubin 0.25 AST 37.8 H ALT 15.7 Alkaline Phosphatase 52.0 Total Protein 7.61 Albumin 4.43 Globulin 3.18 Albumin/Globulin Ratio 1.39 Influ A Molecular Assay Negative by naat Influ B Molecular Assay Negative by naat SARS CoV-2 RNA Rapid KEYANNA Negative Orders Category Date Time Status CBC W/ AUTO DIFF Stat LAB 08/31/24 10:28 Completed CMP [COMPREHENSIVE METABOLIC PANEL] Stat LAB 08/31/24 10:28 Completed FLU A/B MOLECULAR Stat LAB 08/31/24 10:20 Completed RBC MORPHOLOGY Stat LAB 08/31/24 10:28 Completed SARS COV-2 RNA RAPID KEAYNNA Stat LAB 08/31/24 10:20 Completed Azithromycin Inj [Zithromax] 500 mg Meds 08/31/24 10:16 Discontinued 0.9 % Sodium Chloride [Sodium Chloride] 250 ml IV ONCE Ipratropium/Albuterol Neb [Duoneb] Meds 08/31/24 10:15 Discontinued 3 ml NEB ONCE ONE Methylprednisolone Sod Succ/Pf [Solu-Medrol 125 mg] Meds 08/31/24 10:16 Discontinued 125 mg IVP ONCE ONE CHEST, 1V AP ONLY Stat RADS 08/31/24 10:15 Completed Medications Discontinued Medications Generic Name Dose Route Start Last Admin Trade Name Freq PRN Reason Stop Dose Admin Albuterol/Ipratropium 3 ml 08/31/24 10:15 08/31/24 10:24 Ipratropium/Albuterol Vial.Neb NEB 08/31/24 10:16 3 ml ONCE ONE Administration Azithromycin 500 mg/ Sodium 250 mls @ 250 mls/hr 08/31/24 10:16 08/31/24 11:16 Chloride IV 08/31/24 11:15 250 mls/hr ONCE ONE Administration Methylprednisolone Sodium Succinate 125 mg 08/31/24 10:16 08/31/24 11:15 Methylprednisolone Sod Succ/Pf 125 Mg/2 Ml Vial IVP 08/31/24 10:17 125 mg ONCE ONE Administration Vital Signs: Temp Pulse Resp BP Pulse Ox 08/31/24 09:50 99.6 F 91 20 176/98 H 94 L Discharge Plan Discharge Patient Disposition: ADMITTED INPATIENT Discharge Problem: Acute exacerbation of chronic obstructive pulmonary disease Respiratory failure Qualifiers: Chronicity: acute Respiratory failure complication: hypoxia Qualified Code(s): J96.01 - Acute respiratory failure with hypoxia ED Provider: HEENA HERRERA
[2024-08-31] MEDS: DUONEB NEB ONE (10:24)
[2024-08-31 10:35] LABS: BASOPHILS # (AUTO) 0.1 K/uL (0-0.2); BASOPHILS % (AUTO) 1.5 % (0.0-3.0); EOSINOPHILS # (AUTO) 0.2 K/ul (0.0-0.7); EOSINOPHILS % (AUTO) 4.3 % (0.0-7.0); HEMATOCRIT 26.1 % (37.0-47.0); HEMOGLOBIN 7.2 g/dl (12.0-16.0); LYMPHOCYTES # (AUTO) 0.9 K/uL (0.60-3.4); LYMPHOCYTES % (AUTO) 21.7 (10.0-50.0); MEAN CORPUSCULAR HGB CONC 27.6 (31.8-35.4); MEAN CORPUSCULAR VOLUME 68.9 fl (81.0-99.0); MONOCYTES # (AUTO) 0.6 K/uL (0.4-2.0); MONOCYTES % (AUTO) 15.1 (0-10); NEUTROPHILS # (AUTO) 2.3 K/ul (2.0-6.9); NEUTROPHILS % (AUTO) 57.4 % (42.2-75.2); PLATELET COUNT 326 10^3/uL (140-440); RDW COEFFICIENT OF VARIATION 19.6 % (11.6-14.8); RED BLOOD COUNT 3.79 10^6/ul (4.20-5.40); WHITE BLOOD COUNT 3.97 K/ul (4.6-10.2)
[2024-08-31 10:41] LABS: MOLECULAR FLU A NEGATIVE BY NAAT (NEGATIVE); MOLECULAR FLU B NEGATIVE BY NAAT (NEGATIVE); SARS COV-2 RNA RAPID NAAT NEGATIVE (NEGATIVE)
[2024-08-31 10:50] LABS: ANISOCYTOSIS 2+ (NOT PRESENT); HYPOCHROMASIA 3+ (NOT PRESENT); MICROCYTOSIS 2+ (NOT PRESENT)
[2024-08-31 10:51] LABS: ALANINE AMINOTRANSFERASE 15.7 U/L (0-35); ALBUMIN 4.43 g/dL (3.5-5.0); ASPARTATE AMINO TRANSFERASE 37.8 U/L (14-36); BILIRUBIN,TOTAL 0.25 mg/dL (0.2-1.3); BLOOD UREA NITROGEN 5.4 mg/dL (7-17); CALCIUM 9.01 mg/dL (8.4-10.2); CARBON DIOXIDE 29.9 mmol/L (22-30.0); CHLORIDE 101.9 mmol/L (98-107); CREATININE 0.84 mg/dL (0.60-1.30); GLUCOSE 125.5 mg/dL (74-106); POTASSIUM 3.2 mmol/L (3.5-5.1); SODIUM 138.5 mmol/L (134.5-145); TOTAL PROTEIN 7.61 g/dL (6.3-8.2)
[2024-08-31] MEDS: SOLU-MEDROL 125 MG IVP ONE (11:15)
[2024-08-31] MEDS: ZITHROMAX 500 MG in SODIUM CHLORIDE 250 ML IV ONE (11:16)
--- NOTE | 2024-08-31 11:16 | DI ---
EXAM: CHEST RADIOGRAPH TECHNIQUE: Single frontal chest radiograph. HISTORY: Shortness of breath. COMPARISON: 03/04/1979. FINDINGS: Lungs/Pleura: The lungs are clear. There is no pleural effusion. There is no pneumothorax. Lungs are hyperinflated. Heart: The heart size is normal. Bones: Unremarkable. Other: None. IMPRESSION: 1. No acute findings. Lungs are hyperinflated.
[2024-08-31] MEDS: ZOFRAN 4 MG/2 ML IVP ONE (12:10)
[2024-08-31] MEDS: ROCEPHIN 1 GM/50 ML D5W 1 GM/50 ML BAG IV SCH (13:45)
[2024-08-31 14:00] VITALS: BMI 17.4
[2024-08-31] MEDS: DUONEB NEB SCH (14:33)
--- NOTE | 2024-08-31 14:43 | PCM ---
Date of Service Date Seen by Provider: 08/31/24 Time Seen by Provider: 14:30 Admit Day/Time Admission Date: 08/31/24 Reason for Admission Chief Complaint: ACUTE HYPOXIC RESP FAILURE Hospital Provider Hospital Provider: JONH CULVER, [facility] [place] Primary Care Physician Primary Care Physician: GLORIA PARIKH MD History of Present Illness History of Present Illness: 49 yo female presented to the ER with complaints of shortness of breath. Patient reports that she has been in the hospital with her over the past week and started feeling bad over the weekend. Contacted PCP and was started on a z pack and steroids. Had only taken yesterdays dose prior to coming in. O2 sat was running in upper 80s in the ER. She was placed on 2L of oxygen and sat improved. Chest x-ray negative. Hemoglobin found to be 7.2. No signs of active bleeding. Patient does report recent heavy menses and feels she is likely going through menopause. PCP told her to start iron supplementation but hasn't yet. Admitted to med/surg observation. Case Discussed With Case Discussed With: Patient's case was discussed with the ER Physicians, Dr. Goldman. [facility] Medical History Intractable vomiting R11.10 - VOMITING, UNSPECIFIED (ICD-10) Gastroenteritis K52.9 - NONINFECTIVE GASTROENTERITIS AND COLITIS, UNSPECIFIED (ICD-10) Family History MATERNAL GRANDMOTHER Breast cancer Social History Smoking and tobacco status: Current every day smoker Tobacco: How many years used: 25 Quit status: considering quitting Alcohol intake: current Details: maybe 1 to times aonth Substance use type: does not use Household members: friend(s) Housing: house Marital status: D Lives independently: Yes Number of children: 0 Current occupational status: employed Pets and animals: Yes Current gender identity: female Seatbelt use: always Drives intoxicated or rides with intoxicated entry driver operator: No Water heater temperature set < 120 degrees: Yes Working smoke detector in home: Yes Fire extinguisher in home: Yes Carbon monoxide detector in home: Yes Allergies Allergies Allergy/AdvReac Type Severity Reaction Status Date / Time ondansetron AdvReac Vomiting Verified 08/31/24 09:55 [From Zofran (as hydrochloride)] sulfamethoxazole AdvReac Unknown Verified 08/31/24 09:55 [From Bactrim] trimethoprim [From Bactrim] AdvReac Unknown Verified 08/31/24 09:55 Current Medications Home Medications atorvastatin 20 mg tablet See Rx Instructions .Route .COMPLEX #30 tabs 08/03/24 [Rx Confirmed 08/31/24 Last Taken Unknown] citalopram 20 mg tablet See Rx Instructions .Route .COMPLEX #30 tabs 08/03/24 [Rx Confirmed 08/31/24 Last Taken Unknown] clonazepam 0.5 mg tablet (Klonopin) 0.5 mg PO QDAY PRN anxiety #30 tabs 08/03/24 [Rx Confirmed 08/31/24 Last Taken Unknown] levothyroxine 100 mcg tablet 100 mcg PO QDAY #30 tabs 08/03/24 [Rx Confirmed 08/31/24 Last Taken Unknown] losartan 100 mg tablet See Rx Instructions .Route .COMPLEX #30 tabs 08/03/24 [Rx Confirmed 08/31/24 Last Taken Unknown] azithromycin 250 mg tablet (Zithromax Z-Aries) See Rx Instructions PO .COMPLEX #6 tabs 08/30/24 [Rx Confirmed 08/31/24 Last Taken Unknown] prednisone 10 mg tablet 10 mg PO BID #10 tabs 08/30/24 [Rx Confirmed 08/31/24 Last Taken Unknown] Home Albuterol Sulfate (Albuterol Sulfate 0.083% Vial.Neb) 2.5 mg NEB RTQ4H PRN PRN Reason: Wheezing Albuterol/Ipratropium (Ipratropium/Albuterol Vial.Neb) 3 ml NEB RTQ4H [facility] Last Admin: 08/31/24 14:33 Dose: 3 ml Atorvastatin Calcium (Atorvastatin Calcium 20 Mg Tablet) 20 mg PO DAILY [facility] Citalopram Hydrobromide (Citalopram Hydrobromide 20 Mg Tablet) 20 mg PO DAILY [facility] Clonazepam (Clonazepam 0.5 Mg Tablet) 0.5 mg PO DAILY PRN PRN Reason: ANXIETY CEFTRIAXONE/D5W 1 GM PREMIX (Rocephin 1 Gm/50 Ml D5w) 1 gm in 50 mls @ 100 mls/hr IV DAILY [facility] Stop: 09/03/24 13:29 Last Admin: 08/31/24 13:45 Dose: 100 mls/hr Azithromycin 500 mg/ Sodium (Chloride) 250 mls @ 250 mls/hr IV DAILY [facility] Stop: 09/02/24 11:00 Levothyroxine Sodium (Levothyroxine Sodium 100 Mcg Tablet) 100 mcg PO QDAC2 [facility] Losartan Potassium (Losartan Potassium 100 Mg Tablet) 100 mg PO DAILY [facility] Methylprednisolone Sodium Succinate (Methylprednisolone Sod Succ/Pf 40 Mg/Ml Vial) 40 mg IVP Q8HR [facility] Discontinued Medications Albuterol/Ipratropium (Ipratropium/Albuterol Vial.Neb) 3 ml NEB ONCE ONE Stop: 08/31/24 10:16 Last Admin: 08/31/24 10:24 Dose: 3 ml Azithromycin 500 mg/ Sodium (Chloride) 250 mls @ 250 mls/hr IV ONCE ONE Stop: 08/31/24 11:15 Last Admin: 08/31/24 11:16 Dose: 250 mls/hr Losartan Potassium (Losartan Potassium 100 Mg Tablet) 100 mg PO ONCE ONE Stop: 08/31/24 14:38 Last Admin: 08/31/24 14:54 Dose: 100 mg Methylprednisolone Sodium Succinate (Methylprednisolone Sod Succ/Pf 125 Mg/2 Ml Vial) 125 mg IVP ONCE ONE Stop: 08/31/24 10:17 Last Admin: 08/31/24 11:15 Dose: 125 mg Ondansetron HCl (Ondansetron Hcl/Pf 4 Mg/2 Ml Sdv) 4 mg IVP ONCE ONE Stop: 08/31/24 11:56 Last Admin: 08/31/24 12:10 Dose: 4 mg Potassium Chloride (Potassium Chloride 20 Meq Tab) 40 meq PO ONCE ONE Stop: 08/31/24 14:39 Last Admin: 08/31/24 14:53 Dose: 40 meq Opioid Naive vs. Tolerant Does Patient Take Opioids?: No Is Patient Opioid Naive?: Yes What is Opioid Naive?: *Opioid Naive implies the patient is not already taking opioids or not chronically receiving opioids on a daily basis. *PRN dosing is not "usually" associated with tolerance. *Patients are at higher risk of over-sedation and aspiration. Is Patient Opioid Tolerant?: No What is Opioid Tolerant?: *Opioid Tolerance implies less than the expected response to an opioid. *Acquired tolerance is defined by the patient taking 60mg of oral morphine daily (or equianalgesic dose of another opioid) for 1 week or more. *Often associated with chronic pain. *May take more than usual dose to achieve desired pain control. Review of Systems Constitutional: Reports Fatigue Head: Reports Normocephalic Eyes: Reports No symptoms Ears: Reports No symptoms Nose: Reports No symptoms Mouth: Reports No symptoms Throat: Reports No symptoms Cardiovascular: Reports No symptoms Respiratory: Reports Cough and Shortness of air Gastrointestinal: Reports No symptoms Genitourinary: Reports Abnormal Bleeding (irregular menses, heavy bleeding) Musculoskeletal: Reports No symptoms Endocrine: Reports No symptoms Hematology: Reports No symptoms Immunology: Reports No symptoms Neurological: Reports No symptoms Psychiatric: Reports No symptoms Physical examination Most Recent Vital Signs: Most Recent Vital Signs Temperature 97.9 F 08/31/24 13:26 Temperature Source Tympanic 08/31/24 13:26 Temperature Source Temporal Artery Scan 08/31/24 09:50 Pulse Rate 81 08/31/24 13:26 Respiratory Rate 20 08/31/24 13:26 Blood Pressure 176/98 H 08/31/24 09:50 Blood Pressure Left Arm 167/93 08/31/24 13:26 Blood Pressure Position Supine 08/31/24 13:26 O2 Sat by Pulse Oximetry 95 08/31/24 13:26 Oxygen Delivery Method Nasal Cannula 08/31/24 14:00 Oxygen Flow Rate 2 08/31/24 13:26 Height 5 ft 7 in 08/31/24 13:26 Weight 50.3 kg 08/31/24 13:26 Telemetry Type Remote Telemetry 08/31/24 13:00 Telemetry Monitoring Started 08/31/24 13:00 Telemetry Heart Rate 84 08/31/24 13:00 Telemetry SPO2 93 08/31/24 13:00 EKG OH Interval 0.16 08/31/24 13:00 EKG QRS Interval 0.06 08/31/24 13:00 Telemetry Strip Reading SR 08/31/24 13:00 Appearance: Positive No Apparent Distress and Alert and Oriented x3 Skin: Positive Other (pale) HEENT: Positive Normocephalic and Atraumatic Neck: Positive Supple and Midline Trachea Chest/Lungs: Positive Symmetrical With Equal Breath Sounds and Clear to Auscultation Bilaterally (diminished throughout lung white) Heart: Positive RRR and Pulses Normal GI/: Positive Soft, Nontender, Bowel Sounds Normal and No Distention Musculoskeletal: Positive Not Examined Extremities: Positive Intact Peripheral Pulses, Stable Joints Without Laxity and Good ROM in All Joints Neurological: Positive Sensation Intact, Motor intact, Alert, Oriented and Muscle Strength 5/5 in Upper and Lower Extremities Bilaterally Labs This Visit Labs This Visit: Labs This Visit 08/31/24 08/31/24 10:20 10:28 WBC 3.97 L RBC 3.79 L Hgb 7.2 L Hct 26.1 L MCV 68.9 L MCH 19.0 L MCHC 27.6 L RDW Coeff of Jesus 19.6 H Plt Count 326 Immature Gran % (Auto) 0.0 Neut % (Auto) 57.4 Lymph % (Auto) 21.7 [place] % (Auto) 15.1 H Eos % (Auto) 4.3 Baso % (Auto) 1.5 Neut # (Auto) 2.3 Lymph # (Auto) 0.9 [place] # (Auto) 0.6 Eos # (Auto) 0.2 Baso # (Auto) 0.1 Immature Gran # (Auto) 0.0 Hypochromasia 3+ Anisocytosis 2+ Microcytosis 2+ Sodium 138.5 Potassium 3.20 L Chloride 101.9 Carbon Dioxide 29.9 Anion Gap 9.90 BUN 5.4 L Creatinine 0.84 Estimated GFR (MDRD) 72.00 BUN/Creatinine Ratio 6.42 Glucose 125.5 H Calcium 9.01 Total Bilirubin 0.25 AST 37.8 H ALT 15.7 Alkaline Phosphatase 52.0 Total Protein 7.61 Albumin 4.43 Globulin 3.18 Albumin/Globulin Ratio 1.39 Influ A Molecular Assay Negative by naat Influ B Molecular Assay Negative by naat SARS CoV-2 RNA Rapid KEYANNA Negative Imaging Imaging: EXAM: CHEST RADIOGRAPH FINDINGS: Lungs/Pleura: The lungs are clear. There is no pleural effusion. There is no pneumothorax. Lungs are hyperinflated. Heart: The heart size is normal. Bones: Unremarkable. Other: None. IMPRESSION: 1. No acute findings. Lungs are hyperinflated. Review Statement Review Statement: I have independently reviewed and interpreted the labs/EKGs/imaging that were ordered by the ER provider. I have reviewed all outside records that are available currently in our EMR including imaging/notes/labs from previous visits. Plan Plan: 1. Acute Hypoxic Respiratory Failure in the setting of COPD exacerbation - wean oxygen as tolerated, steroids, nebs 2. COPD exacerbation - steroids, nebs, rocephin, azith 3. Anemia - reports heavy menses, recently told by PCP to start iron supplementation, unknown what levels were, will check iron labs, no bloody or dark stools, will trend hbg 4. Hypertension - chronic, continue home medications 5. Hypothyroidism - chronic, continue home medications DVT Prophylaxis: Ambulation Time Spent: Greater than 80 minutes spent with patient, 50% of the time spent with this patient was devoted to counseling and coordination of care. [facility]in minutes spent discussing advance care planning. Smoking Cessation: 3-10 minutes spent discussing smoking cessation. Disposition: Admit to: Med/Surg Observation Full Code Discussed Plan of Care with Dr. Zara Parikh. Medications Medication Orders: Medications Ordered Category Date Time Status Albuterol Sulfate 0.083% Neb [Albuterol 0.083% Neb] Meds 08/31/24 13:01 Active 2.5 mg NEB RTQ4H PRN Atorvastatin Calcium [Lipitor] Meds 09/01/24 09:00 Active 20 mg PO DAILY Azithromycin Inj [Zithromax] 500 mg Meds 09/01/24 09:00 Active 0.9 % Sodium Chloride [Sodium Chloride] 250 ml IV DAILY Ceftriaxone/D5w 1 gm Premix [Rocephin 1 gm/50 ml D5w] Meds 08/31/24 13:30 Active 1 gm in 50 ml IV DAILY Citalopram Hydrobromide [Celexa] Meds 09/01/24 09:00 Active 20 mg PO DAILY Clonazepam [Klonopin] Meds 09/01/24 09:00 Active 0.5 mg PO DAILY PRN Ipratropium/Albuterol Neb [Duoneb] Meds 08/31/24 14:00 Active 3 ml NEB RTQ4H Levothyroxine Sodium [Synthroid] Meds 09/01/24 06:00 Active 100 mcg PO QDAC2 Losartan Potassium [Cozaar] Meds 09/01/24 09:00 Active 100 mg PO DAILY Methylprednisolone Sod Succ/Pf [Solu-Medrol 40 mg] Meds 08/31/24 21:00 Active 40 mg IVP Q8HR
[2024-08-31] MEDS: K-DUR PO ONE (14:53)
[2024-08-31] MEDS: COZAAR PO ONE (14:54)
[2024-08-31 14:57] LABS: IRON 14.8 ug/dL (37-170)
[2024-08-31] MEDS: VENOFER IV ONE (16:16)
[2024-08-31] MEDS: SODIUM CHLORIDE IV ONE (16:16)
[2024-08-31] MEDS: SOLU-MEDROL 40 MG IVP SCH (21:54)
[2024-09-01] MEDS: SYNTHROID PO SCH (05:17)
[2024-09-01 05:41] LABS: BASOPHILS % (AUTO) 0.2 % (0.0-3.0); HEMATOCRIT 26.4 % (37.0-47.0); HEMOGLOBIN 7.1 g/dl (12.0-16.0); IMMATURE GRANULOCYTE % (AUTO) 0.6 % (0.0-5.0); LYMPHOCYTES # (AUTO) 0.7 K/uL (0.60-3.4); LYMPHOCYTES % (AUTO) 14.3 (10.0-50.0); MEAN CORPUSCULAR HEMOGLOBIN 18.3 pg (27.0-31.0); MEAN CORPUSCULAR HGB CONC 26.9 (31.8-35.4); MEAN CORPUSCULAR VOLUME 68.2 fl (81.0-99.0); MONOCYTES # (AUTO) 0.4 K/uL (0.4-2.0); MONOCYTES % (AUTO) 7.6 (0-10); NEUTROPHILS # (AUTO) 3.8 K/ul (2.0-6.9); NEUTROPHILS % (AUTO) 77.3 % (42.2-75.2); PLATELET COUNT 352 10^3/uL (140-440); RDW COEFFICIENT OF VARIATION 20.2 % (11.6-14.8); RED BLOOD COUNT 3.87 10^6/ul (4.20-5.40)
[2024-09-01 05:52] LABS: ALBUMIN 4.34 g/dL (3.5-5.0); ALKALINE PHOSPHATASE 51.9 U/L (38-126); BILIRUBIN,TOTAL 0.22 mg/dL (0.2-1.3); BLOOD UREA NITROGEN 7.4 mg/dL (7-17); CALCIUM 9.11 mg/dL (8.4-10.2); CARBON DIOXIDE 28.2 mmol/L (22-30.0); CHLORIDE 103.1 mmol/L (98-107); CREATININE 0.77 mg/dL (0.60-1.30); GLUCOSE 112.6 mg/dL (74-106); POTASSIUM 3.6 mmol/L (3.5-5.1); SODIUM 139.7 mmol/L (134.5-145); TOTAL PROTEIN 7.45 g/dL (6.3-8.2)
[2024-09-01 06:01] LABS: IRON 235.7 ug/dL (37-170)
[2024-09-01 06:27] LABS: FERRITIN 11.4 ng/mL (11.1-264.0)
[2024-09-01] MEDS ORDERED: KLONOPIN PO PRN (09:00)
[2024-09-01] MEDS: CELEXA PO SCH (09:13)
[2024-09-01] MEDS: COZAAR PO SCH (09:13)
[2024-09-01] MEDS: LIPITOR PO SCH (09:13)
[2024-09-01] MEDS: ZITHROMAX 500 MG in SODIUM CHLORIDE 250 ML IV SCH (10:28)
--- NOTE | 2024-09-01 11:32 | PCM.PROG ---
Date/Time Seen Date Seen by Provider: 09/01/24 Time Seen by Provider: 08:45 Provider Provider: JONH CULVER, [facility] Chief Complaint Chief Complaint: ACUTE HYPOXIC RESP FAILURE Subjective Subjective: Feeling some better today. Fatigue is mildly improved, still short of breath on exertion or when oxygen is removed. Hemoglobin dropped further to 7.1 today. Objective Appearance: Positive No Apparent Distress and Alert and Oriented x3 Chest/Lungs: Positive Symmetrical With Equal Breath Sounds, Clear to Auscultation Bilaterally and Good Air Movement all 4 Lung Rand Heart: Positive RRR and Pulses Normal GI/: Positive Soft, Nontender, Bowel Sounds Normal and No Distention Musculoskeletal: Positive Not Examined Neurological: Positive Sensation Intact, Motor intact, Alert and Oriented Vital Signs Vital Signs: Vital Signs: Last 24 Hours 08/31/24 13:00 08/31/24 13:26 08/31/24 13:26 Temperature 97.9 F Temperature Source Tympanic Pulse Rate 81 Respiratory Rate 20 22 H Blood Pressure Blood Pressure Mean Blood Pressure Left Arm 167/93 Blood Pressure Location Blood Pressure Position Supine O2 Sat by Pulse Oximetry 95 Oxygen Delivery Method Nasal Cannula Room Air Oxygen Flow Rate 2 Height 5 ft 7 in Weight 50.3 kg Telemetry Type Remote Telemetry Telemetry Monitoring Started Telemetry Heart Rate 84 Telemetry SPO2 93 EKG OH Interval 0.16 EKG QRS Interval 0.06 Telemetry Strip Reading SR 08/31/24 14:00 08/31/24 14:00 08/31/24 14:00 Temperature Temperature Source Pulse Rate Respiratory Rate Blood Pressure Blood Pressure Mean Blood Pressure Left Arm Blood Pressure Location Blood Pressure Position O2 Sat by Pulse Oximetry 97 Oxygen Delivery Method Nasal Cannula Nasal Cannula Nasal Cannula Oxygen Flow Rate 2 Height Weight Telemetry Type Telemetry Monitoring Telemetry Heart Rate Telemetry SPO2 EKG OH Interval EKG QRS Interval Telemetry Strip Reading 08/31/24 15:00 08/31/24 16:00 08/31/24 17:00 Temperature Temperature Source Pulse Rate Respiratory Rate Blood Pressure Blood Pressure Mean Blood Pressure Left Arm Blood Pressure Location Blood Pressure Position O2 Sat by Pulse Oximetry Oxygen Delivery Method Nasal Cannula Nasal Cannula Nasal Cannula Oxygen Flow Rate Height Weight Telemetry Type Telemetry Monitoring Telemetry Heart Rate Telemetry SPO2 EKG OH Interval EKG QRS Interval Telemetry Strip Reading 08/31/24 17:23 08/31/24 18:00 08/31/24 19:00 Temperature 97.8 F Temperature Source Temporal Artery Scan Pulse Rate 72 Respiratory Rate 16 Blood Pressure 162/92 H Blood Pressure Mean 115 Blood Pressure Left Arm Blood Pressure Location Left Arm Blood Pressure Position Sitting O2 Sat by Pulse Oximetry 97 Oxygen Delivery Method Nasal Cannula Nasal Cannula Nasal Cannula Oxygen Flow Rate 2 Height Weight Telemetry Type Telemetry Monitoring Telemetry Heart Rate Telemetry SPO2 EKG OH Interval EKG QRS Interval Telemetry Strip Reading 08/31/24 19:00 08/31/24 20:00 08/31/24 20:00 Temperature Temperature Source Pulse Rate Respiratory Rate Blood Pressure Blood Pressure Mean Blood Pressure Left Arm Blood Pressure Location Blood Pressure Position O2 Sat by Pulse Oximetry Oxygen Delivery Method Nasal Cannula Room Air Oxygen Flow Rate Height Weight Telemetry Type Remote Telemetry Telemetry Monitoring Started Telemetry Heart Rate 73 Telemetry SPO2 95 EKG OH Interval 0.13 EKG QRS Interval 0.08 Telemetry Strip Reading NSR 08/31/24 20:00 08/31/24 21:00 08/31/24 21:15 Temperature 98 F Temperature Source Temporal Artery Scan Pulse Rate 69 Respiratory Rate 15 Blood Pressure 150/90 H Blood Pressure Mean 110 Blood Pressure Left Arm Blood Pressure Location Left Arm Blood Pressure Position Supine O2 Sat by Pulse Oximetry 92 L 94 L Oxygen Delivery Method Nasal Cannula Nasal Cannula Nasal Cannula Oxygen Flow Rate 2 2 Height Weight Telemetry Type Telemetry Monitoring Telemetry Heart Rate Telemetry SPO2 EKG OH Interval EKG QRS Interval Telemetry Strip Reading 08/31/24 22:00 08/31/24 23:00 08/31/24 23:59 Temperature Temperature Source Pulse Rate Respiratory Rate Blood Pressure Blood Pressure Mean Blood Pressure Left Arm Blood Pressure Location Blood Pressure Position O2 Sat by Pulse Oximetry Oxygen Delivery Method Nasal Cannula Nasal Cannula Nasal Cannula Oxygen Flow Rate Height Weight Telemetry Type Telemetry Monitoring Telemetry Heart Rate Telemetry SPO2 EKG OH Interval EKG QRS Interval Telemetry Strip Reading 09/01/24 01:00 09/01/24 01:00 09/01/24 02:00 Temperature Temperature Source Pulse Rate Respiratory Rate Blood Pressure Blood Pressure Mean Blood Pressure Left Arm Blood Pressure Location Blood Pressure Position O2 Sat by Pulse Oximetry Oxygen Delivery Method Nasal Cannula Nasal Cannula Oxygen Flow Rate Height Weight Telemetry Type Remote Telemetry Telemetry Monitoring Started Telemetry Heart Rate 73 Telemetry SPO2 99 EKG OH Interval 0.15 EKG QRS Interval 0.08 Telemetry Strip Reading NSR 09/01/24 03:00 09/01/24 04:00 09/01/24 05:00 Temperature Temperature Source Pulse Rate Respiratory Rate Blood Pressure Blood Pressure Mean Blood Pressure Left Arm Blood Pressure Location Blood Pressure Position O2 Sat by Pulse Oximetry Oxygen Delivery Method Nasal Cannula Nasal Cannula Nasal Cannula Oxygen Flow Rate Height Weight Telemetry Type Telemetry Monitoring Telemetry Heart Rate Telemetry SPO2 EKG OH Interval EKG QRS Interval Telemetry Strip Reading 09/01/24 05:03 09/01/24 05:16 09/01/24 06:00 Temperature 98.7 F Temperature Source Temporal Artery Scan Pulse Rate 87 Respiratory Rate 16 Blood Pressure 128/68 Blood Pressure Mean 88 Blood Pressure Left Arm Blood Pressure Location Left Arm Blood Pressure Position Supine O2 Sat by Pulse Oximetry 93 L 95 Oxygen Delivery Method Nasal Cannula Nasal Cannula Nasal Cannula Oxygen Flow Rate 2 2 Height Weight Telemetry Type Telemetry Monitoring Telemetry Heart Rate Telemetry SPO2 EKG OH Interval EKG QRS Interval Telemetry Strip Reading 09/01/24 07:00 09/01/24 07:00 09/01/24 09:53 Temperature Temperature Source Pulse Rate Respiratory Rate Blood Pressure Blood Pressure Mean Blood Pressure Left Arm Blood Pressure Location Blood Pressure Position O2 Sat by Pulse Oximetry 98 Oxygen Delivery Method Nasal Cannula Nasal Cannula Oxygen Flow Rate 2 Height Weight Telemetry Type Remote Telemetry Telemetry Monitoring Continues Telemetry Heart Rate 88 Telemetry SPO2 93 EKG OH Interval 0.14 EKG QRS Interval 0.06 Telemetry Strip Reading SR 09/01/24 10:00 Temperature 98.5 F Temperature Source Temporal Artery Scan Pulse Rate 76 Respiratory Rate 18 Blood Pressure 151/78 H Blood Pressure Mean 102 Blood Pressure Left Arm Blood Pressure Location Left Arm Blood Pressure Position Sitting O2 Sat by Pulse Oximetry 94 L Oxygen Delivery Method Room Air Oxygen Flow Rate Height Weight Telemetry Type Telemetry Monitoring Telemetry Heart Rate Telemetry SPO2 EKG OH Interval EKG QRS Interval Telemetry Strip Reading Lab Results Lab Results: Lab Results: Last 24 Hours 09/01/24 09/01/24 08/31/24 09:57 05:26 10:28 WBC 4.90 RBC 3.87 L Hgb 7.1 L Hct 26.4 L MCV 68.2 L MCH 18.3 L MCHC 26.9 L RDW Coeff of Jesus 20.2 H Plt Count 352 Immature Gran % (Auto) 0.6 Neut % (Auto) 77.3 H Lymph % (Auto) 14.3 [place] % (Auto) 7.6 Eos % (Auto) 0.0 Baso % (Auto) 0.2 Neut # (Auto) 3.8 Lymph # (Auto) 0.7 [place] # (Auto) 0.4 Eos # (Auto) 0.0 Baso # (Auto) 0.0 Immature Gran # (Auto) 0.0 Sodium 139.7 Potassium 3.60 Chloride 103.1 Carbon Dioxide 28.2 Anion Gap 12.00 BUN 7.4 Creatinine 0.77 Estimated GFR (MDRD) 79.00 BUN/Creatinine Ratio 9.61 Glucose 112.6 H Calcium 9.11 Iron 235.7 H 14.8 L TIBC 420 447 % Saturation 56 3 Ferritin 11.40 4.44 L Total Bilirubin 0.22 AST 32.0 ALT 16.0 Alkaline Phosphatase 51.9 Total Protein 7.45 Albumin 4.34 Globulin 3.11 Albumin/Globulin Ratio 1.39 Blood Type B POSITIVE B POSITIVE Antibody Screen Negative Crossmatch (AHG) See Detail Additional Comments Additional Comments: I have independently reviewed and interpreted the labs/EKGs/imaging ordered during this hospital stay. I have reviewed outside records that are available in our EMR that pertain to medical stay including imaging/notes/labs from previous visits. Active Medications Active Medications: Medications Generic Name Dose Route Start Last Admin Trade Name Freq PRN Reason Stop Dose Admin Albuterol Sulfate 2.5 mg 08/31/24 13:01 Albuterol Sulfate 0.083% Vial.Neb NEB RTQ4H PRN Wheezing Albuterol/Ipratropium 3 ml 08/31/24 14:00 09/01/24 09:57 Ipratropium/Albuterol Vial.Neb NEB 3 ml RTQ4H HARLAN Administration Atorvastatin Calcium 20 mg 09/01/24 09:00 09/01/24 09:13 Atorvastatin Calcium 20 Mg Tablet PO 20 mg DAILY HARLAN Administration Citalopram Hydrobromide 20 mg 09/01/24 09:00 09/01/24 09:13 Citalopram Hydrobromide 20 Mg Tablet PO 20 mg DAILY HARLAN Administration Clonazepam 0.5 mg 09/01/24 09:00 Clonazepam 0.5 Mg Tablet PO DAILY PRN ANXIETY CEFTRIAXONE/D5W 1 GM PREMIX 1 gm in 50 mls @ 100 mls/hr 08/31/24 13:30 09/01/24 09:14 Rocephin 1 Gm/50 Ml D5w IV 09/03/24 13:29 100 mls/hr DAILY HARLAN Administration Azithromycin 500 mg/ Sodium 250 mls @ 250 mls/hr 09/01/24 09:00 09/01/24 10:28 Chloride IV 09/02/24 11:00 250 mls/hr DAILY HARLAN Administration Levothyroxine Sodium 100 mcg 09/01/24 06:00 09/01/24 05:17 Levothyroxine Sodium 100 Mcg Tablet PO 100 mcg QDAC2 HARLAN Administration Losartan Potassium 100 mg 09/01/24 09:00 09/01/24 09:13 Losartan Potassium 100 Mg Tablet PO 100 mg DAILY HARLAN Administration Methylprednisolone Sodium Succinate 40 mg 08/31/24 21:00 09/01/24 05:26 Methylprednisolone Sod Succ/Pf 40 Mg/Ml Vial IVP 40 mg Q8HR HARLAN Administration Sodium Chloride 1 syr 09/01/24 05:30 09/01/24 05:26 0.9% Sodium Chloride 10 Ml Disp.Syrin IVF 1 syr Q8HR HARLAN Administration Plan Plan: 1. Acute Hypoxic Respiratory Failure in the setting of COPD exacerbation - wean oxygen as tolerated, steroids, nebs 2. COPD exacerbation - steroids, nebs, rocephin, azith 3. Anemia - reports heavy menses, recently told by PCP to start iron supplementation, no bloody or dark stools, iron and ferritin severely low yesterday - received 100 mg venofer, levels improved, hemoglobin dropped to 7.1, type and screen, transfuse 1 unit PRBCs today 4. Hypertension - chronic, continue home medications 5. Hypothyroidism - chronic, continue home medications DVT Prophylaxis: Ambulation Review Statement Review Statement: I have personally discussed and reviewed the patient's visit/currently labs/imaging/decision making with Dr. Parikh, my supervising attending. Greater that 50 minutes spent with patient, 50% of the time spent with this patient was devoted to counseling and coordination of care.
[2024-09-01] MEDS: REGLAN IVP PRN (12:33)
[2024-09-01] MEDS: HYDROCHLOROTHIAZIDE PO SCH (16:06)
[2024-09-02 05:22] LABS: BASOPHILS % (AUTO) 0.1 % (0.0-3.0); HEMATOCRIT 30.3 % (37.0-47.0); HEMOGLOBIN 8.8 g/dl (12.0-16.0); IMMATURE GRANULOCYTE # (AUTO) 0.1 (0.0-1.0); IMMATURE GRANULOCYTE % (AUTO) 0.7 % (0.0-5.0); LYMPHOCYTES # (AUTO) 0.9 K/uL (0.60-3.4); LYMPHOCYTES % (AUTO) 8.7 (10.0-50.0); MEAN CORPUSCULAR HEMOGLOBIN 20.6 pg (27.0-31.0); MONOCYTES # (AUTO) 0.4 K/uL (0.4-2.0); MONOCYTES % (AUTO) 4.1 (0-10); NEUTROPHILS # (AUTO) 9.1 K/ul (2.0-6.9); NEUTROPHILS % (AUTO) 86.4 % (42.2-75.2); PLATELET COUNT 322 10^3/uL (140-440); RED BLOOD COUNT 4.27 10^6/ul (4.20-5.40)
[2024-09-02 05:38] LABS: ALANINE AMINOTRANSFERASE 12.8 U/L (0-35); ALBUMIN 4.27 g/dL (3.5-5.0); ALKALINE PHOSPHATASE 48.5 U/L (38-126); ASPARTATE AMINO TRANSFERASE 30.8 U/L (14-36); BILIRUBIN,TOTAL 0.44 mg/dL (0.2-1.3); BLOOD UREA NITROGEN 10.4 mg/dL (7-17); CALCIUM 9.17 mg/dL (8.4-10.2); CARBON DIOXIDE 31.6 mmol/L (22-30.0); CHLORIDE 100.1 mmol/L (98-107); CREATININE 0.78 mg/dL (0.60-1.30); GLUCOSE 108.5 mg/dL (74-106); POTASSIUM 3.68 mmol/L (3.5-5.1); SODIUM 136.7 mmol/L (134.5-145); TOTAL PROTEIN 7.26 g/dL (6.3-8.2)
[2024-09-02 05:53] LABS: IRON 36.8 ug/dL (37-170)
[2024-09-02 06:06] LABS: HYPOCHROMASIA 1+ (NOT PRESENT); POIKILOCYTOSIS 1+ (NOT PRESENT)
[2024-09-02 06:07] LABS: ANISOCYTOSIS 2+ (NOT PRESENT)
[2024-09-02] MEDS: ALBUTEROL 0.083% NEB NEB PRN (08:21)
[2024-09-02 10:11] VITALS: BP 138/82; PULSE 88; RESP 18; TEMP 99.2
--- NOTE | 2024-09-02 11:42 | DCSUM ---
Admission Date Admission Date: 08/31/24 Discharge Date Discharge Date: 09/02/24 Admission Diagnosis Admission Diagnosis: 1. Acute Hypoxic Respiratory Failure in the setting of COPD exacerbation 2. COPD exacerbation 3. Anemia 4. Hypertension 5. Hypothyroidism Discharge Diagnosis Discharge Diagnosis: 1. Acute Hypoxic Respiratory Failure in the setting of COPD exacerbation - Resolved 2. COPD exacerbation - Improving 3. Anemia - Improving, received 1 unit PRBC and venofer 4. Hypertension - chronic, uncontrolled, added HCTZ 5. Hypothyroidism - chronic, stable Hospital Provider Hospital Provider: JONH CULVER, [facility] [place] Care Physician Primary Care Physician: GLORIA HOSKINS MD Summary of History and Physical Summary of History and Physical: 49 yo female presented to the ER with complaints of shortness of breath. Patient reports that she has been in the hospital with her over the past week and started feeling bad over the weekend. Contacted PCP and was started on a z pack and steroids. Had only taken yesterdays dose prior to coming in. O2 sat was running in upper 80s in the ER. She was placed on 2L of oxygen and sat improved. Chest x-ray negative. Hemoglobin found to be 7.2. No signs of active bleeding. Patient does report recent heavy menses and feels she is likely going through menopause. PCP told her to start iron supplementation but hasn't yet. Admitted to med/surg observation. Hospital Course Subjective: During stay, patient was treated for acute hypoxic respiratory failure in setting of COPD exacerbation. Oxygen was weaned and has been on RA today. 3 step oximetry completed and passed without need for home O2. Received steroids and nebs as well as rocephin and course of azithromycin. D/c with augmentin x 4 days. In addition to COPD exacerbation, patient was found to have iron deficiency anemia. Iron was replaced with venofer and she received 1 unit of PRBC due to continual decline in hemoglobin and continued hypoxia/fatigue. Hemoglobin improved to 8.6 from 7.1. Reports feeling much better today and feels that her energy has greatly improved. BP remained elevated on home BP medication, added HCTZ and showed mild improvement. Has had excess stress in life at this time. Discussed to monitor it at home and discuss with PCP at follow-up. Referral sent to [facility] for heavy menses/pre-menopause. Sent with Rx for inhaler, refill of citalopram, iron supplementation, augmentin, and HCTZ Appearance: Pleasant, No Apparent Distress and Alert HEENT: MMM, Supple and No JVD CVS: No Murmur and No Rubs Abdomen: Soft, Non-Tender and No Distention Respiratory: Other (mild wheezing lower lobes) Extremities: No Edema Vital Signs: Most Recent Vital Signs Temperature 99.2 F 09/02/24 10:00 Temperature Source Temporal Artery Scan 09/02/24 10:00 Temperature Source Temporal Artery Scan 08/31/24 09:50 Pulse Rate 88 09/02/24 10:00 Respiratory Rate 18 09/02/24 10:00 Blood Pressure 138/82 09/02/24 10:00 Blood Pressure Mean 100 09/02/24 10:00 Blood Pressure Left Arm 167/93 08/31/24 13:26 Blood Pressure Location Left Arm 09/02/24 10:00 Blood Pressure Position Sitting 09/02/24 10:00 O2 Sat by Pulse Oximetry 96 09/02/24 10:00 Oxygen Delivery Method Room Air 09/02/24 10:00 Oxygen Flow Rate 0.5 09/02/24 08:31 Height 5 ft 7 in 08/31/24 13:26 Weight 50.3 kg 08/31/24 13:26 Telemetry Type Remote Telemetry 09/02/24 07:00 Telemetry Monitoring Continues 09/02/24 07:00 Telemetry Heart Rate 82 09/02/24 07:00 Telemetry SPO2 97 09/02/24 07:00 EKG CO Interval 0.15 09/02/24 07:00 EKG QRS Interval 0.07 09/02/24 07:00 Telemetry Strip Reading NSR 09/02/24 07:00 Imaging: EXAM: CHEST RADIOGRAPH FINDINGS: Lungs/Pleura: The lungs are clear. There is no pleural effusion. There is no pneumothorax. Lungs are hyperinflated. Heart: The heart size is normal. Bones: Unremarkable. Other: None. IMPRESSION: 1. No acute findings. Lungs are hyperinflated. Lab Results Last 24 Hours: 09/02/24 09/01/24 09/01/24 05:11 15:57 09:57 WBC 10.50 H D RBC 4.27 Hgb 8.8 L 8.3 L Hct 30.3 L MCV 71.0 L MCH 20.6 L MCHC 29.0 L RDW Coeff of Jesus 23.0 H Plt Count 322 Immature Gran % (Auto) 0.7 Neut % (Auto) 86.4 H Lymph % (Auto) 8.7 L [place] % (Auto) 4.1 Eos % (Auto) 0.0 Baso % (Auto) 0.1 Neut # (Auto) 9.1 H Lymph # (Auto) 0.9 [place] # (Auto) 0.4 Eos # (Auto) 0.0 Baso # (Auto) 0.0 Immature Gran # (Auto) 0.1 Hypochromasia 1+ Poikilocytosis 1+ Anisocytosis 2+ Sodium 136.7 Potassium 3.68 Chloride 100.1 Carbon Dioxide 31.6 H Anion Gap 8.68 BUN 10.4 Creatinine 0.78 Estimated GFR (MDRD) 78.00 BUN/Creatinine Ratio 13.33 Glucose 108.5 H Calcium 9.17 Iron 36.8 L TIBC 402 % Saturation 9 Ferritin 24.00 Total Bilirubin 0.44 AST 30.8 ALT 12.8 Alkaline Phosphatase 48.5 Total Protein 7.26 Albumin 4.27 Globulin 2.99 Albumin/Globulin Ratio 1.42 Blood Type B POSITIVE Antibody Screen Negative Crossmatch (AHG) See Detail Discharge Instructions Discharge Planning: Discharge Planning > 40 minutes If patient is discharged with left ventricular systolic dysfunction: NA Discharged with a beta jonathan? [] If no, why not? [] Discharged with an joey/arb? [] If no, why not? [] DISCHARGE HOME DIAGNOSIS: COPD EXACERBATION, IRON DEFICIENCY ANEMIA DIET: CARDIAC ACTIVITY: TOLERATED FOLLOW-UP WITH PCP NEXT WEEK. YOU HAVE BEEN REFERRED TO [facility]. THEY ARE REVIEWING THE REFERRAL AND WILL CONTACT YOU TO SCHEDULE AN APPOINTMENT. SHOULD YOU HAVE ANY QUESTIONS OR IF YOU DO NOT HEAR FROM THEM IN THE NEXT FEW DAYS, PLEASE CONTACT THEM AT [phone]. [facility] Discharge Medications: Medications at Discharge (Home Meds & RX) atorvastatin 20 mg tablet See Rx Instructions .Route .COMPLEX #30 tabs 08/03/24 citalopram 20 mg tablet See Rx Instructions .Route .COMPLEX #30 tabs 08/03/24 clonazepam 0.5 mg tablet (Klonopin) 0.5 mg PO QDAY PRN anxiety #30 tabs 08/03/24 levothyroxine 100 mcg tablet 100 mcg PO QDAY #30 tabs 08/03/24 losartan 100 mg tablet See Rx Instructions .Route .COMPLEX #30 tabs 08/03/24 azithromycin 250 mg tablet (Zithromax Z-Aries) See Rx Instructions PO .COMPLEX #6 tabs 08/30/24 prednisone 10 mg tablet 10 mg PO BID #10 tabs 08/30/24 Discharge Plan Discharge Discharge Orders: Discharge Patient (ONCE); Ordered 09/02/24 Ordered By: TASHA SALEH Activity Restrictions/Additional Instructions: DISCHARGE HOME DIAGNOSIS: COPD EXACERBATION, IRON DEFICIENCY ANEMIA DIET: CARDIAC ACTIVITY: TOLERATED FOLLOW-UP WITH PCP NEXT WEEK. YOU HAVE BEEN REFERRED TO [facility]. THEY ARE REVIEWING THE REFERRAL AND WILL CONTACT YOU TO SCHEDULE AN APPOINTMENT. SHOULD YOU HAVE ANY QUESTIONS OR IF YOU DO NOT HEAR FROM THEM IN THE NEXT FEW DAYS, PLEASE CONTACT THEM AT [phone]. MEDICATIONS: [place] DRUGS 1 Instructions: COPD (Chronic Obstructive Pulmonary Disease) (DC), Anemia (DC), Hypoxia (GEN), Chronic Lung Disease and Infection Prevention (DC), Pulse Oximetry (DC) Patient Disposition: HOME SELF-CARE Prescriptions: New hydrochlorothiazide 25 mg Tablet 12.5 mg PO DAILY Qty: 30 0RF albuterol sulfate 90 mcg/actuation HFA aerosol inhaler 2 puff inhalation Q4-6H PRN (Reason: shortness of breath or wheezing) Qty: 6.7 0RF amoxicillin-pot clavulanate 875-125 mg tablet 1 tab PO BID Qty: 8 0RF Rx Instructions: Start tomorrow ferrous sulfate 325 mg (65 mg iron) tablet 325 mg PO BID Qty: 60 0RF Continued prednisone 10 mg tablet 10 mg PO BID Qty: 10 0RF citalopram 20 mg tablet See Rx Instructions .ROUTE .COMPLEX Qty: 30 0RF Dose Instruction: TAKE ONE TABLET DAILY Rx Instructions: TAKE ONE TABLET DAILY atorvastatin 20 mg tablet See Rx Instructions .ROUTE .COMPLEX Qty: 30 5RF Dose Instruction: TAKE ONE TABLET DAILY Rx Instructions: TAKE ONE TABLET DAILY clonazepam [Klonopin] 0.5 mg tablet 0.5 mg PO QDAY PRN (Reason: anxiety) Qty: 30 2RF levothyroxine 100 mcg tablet 100 mcg PO QDAY Qty: 30 5RF losartan 100 mg tablet See Rx Instructions .ROUTE .COMPLEX Qty: 30 5RF Dose Instruction: TAKE ONE TABLET DAILY (REPLACES QUINAPRIL) Rx Instructions: TAKE ONE TABLET DAILY (REPLACES QUINAPRIL) Discontinued azithromycin [Zithromax Z-Aries] 250 mg tablet See Rx Instructions PO .COMPLEX Qty: 6 0RF Rx Instructions: For 250 mg dose pack: take 500 mg today (day 1), then 250 mg for 4 days (days 2-5) PO Did you review [place] [employer] for ALL controlled substances?: No Discussed opioids are addictive and Narcan is available by prescription or from pharmacy.: No Condition: Fair Referrals: GLORIA HOSKINS MD [Primary Care Provider] - 09/06/24 2:20 pm
== END 2024-09-02 13:00 | disposition home or self-care (01) ==
LOC: MEDSURG B 09:44 → ED 09:44 → MEDSURG B 13:27
PROVIDERS: ADMIT Hospitalist; ATTEND Nurse Practitioner Family
DX: Z79.899 Other long term (current) drug therapy; F17.210 Nicotine dependence, cigarettes, uncomplicated; I10 Essential (primary) hypertension; Z20.822 Contact with and (suspected) exposure to COVID-19; Z51.81 Encounter for therapeutic drug level monitoring; E03.9 Hypothyroidism, unspecified; D50.9 Iron deficiency anemia, unspecified; J44.1 Chronic obstructive pulmonary disease with (acute) exacerbation; J96.01 Acute respiratory failure with hypoxia